=== PATIENT | male | born 1935 | race Caucasian/White ===

== ENCOUNTER 2017-09-06 17:19 | Emergency (ER) | payer MEDICARE, MEDICAID, OTHER ==
[~2017-09-06] VITALS: Ht 177.8 cm; Wt 88.6 kg
[~2017-09-06 17:19] MED LIST: ALLO100T PO; AMLO5TAB PO; ASPI-1265 PO; CLON0.2T PO; FLO0.4C PO; GLIP5TAB13 PO; LISI40TA4 PO; METO25TA6 PO
[2017-09-06 18:45] LABS: BASOPHILS % (AUTO) 0.2 % (0-1); EOSINOPHILS # (AUTO) 0.2 X10'3 (0-0.9); EOSINOPHILS % (AUTO) 2.3 % (0-6); HEMATOCRIT 37.5 % (42.0-52.0); LYMPHOCYTES # (AUTO) 2.2 X10'3 (1.1-4.8); LYMPHOCYTES % (AUTO) 27.7 % (21-51); MEAN CORPUSCULAR HEMOGLOBIN 29.8 PG (27.0-31.0); MEAN CORPUSCULAR HGB CONC 34.5 % (33.0-36.5); MEAN CORPUSCULAR VOLUME 86.3 FL (78-98); MEAN PLATELET VOLUME 7.8 FL (7.4-10.4); MONOCYTES # (AUTO) 0.4 X10'3 (0-0.9); MONOCYTES % (AUTO) 5.4 % (2-12); NEUTROPHILS % (AUTO) 64.4 % (42-75); PLATELET COUNT 132 X10'3 (140-440); RED BLOOD COUNT 4.35 X10'6 (4.70-6.10); RED CELL DISTRIBUTION WIDTH 13.5 % (11.5-14.5); WHITE BLOOD COUNT 7.8 X10'3 (4.5-11.0)
[2017-09-06 18:56] LABS: PROTHROMBIN TIME 10.1 SECONDS (9.0-12.0)
[2017-09-06 19:00] LABS: ALANINE AMINOTRANSFERASE 32 U/L (12-78); ALBUMIN 3.5 G/DL (3.4-5.0); ALBUMIN/GLOBULIN RATIO 0.8 (1.1-1.5); ALKALINE PHOSPHATASE 80 IU/L (46-116); ANION GAP 12 (8-16); ASPARTATE AMINO TRANSFERASE 14 U/L (10-37); BILIRUBIN,TOTAL 0.6 MG/DL (0.1-1.0); BLOOD UREA NITROGEN 58 MG/DL (7-18); BUN/CREATININE RATIO 29.4 (5.4-32.0); CALCIUM 9.9 MG/DL (8.5-10.1); CHLORIDE 104 MMOL/L (99-107); CREATININE 1.97 MG/DL (0.60-1.10); GLUCOSE 129 MG/DL (70-104); SODIUM 137 MMOL/L (135-145); TOTAL CARBON DIOXIDE 21.3 MMOL/L (24-32); TOTAL PROTEIN 7.9 G/DL (6.4-8.2); eGFR 33 ML/MIN
[2017-09-06 19:45] VITALS: BP 110/63
[2017-09-06] MEDS ORDERED: HYDROcodone/acetaminophen 5mg/325mg tablet PO ONE (20:05)
[2017-09-06] MEDS ORDERED: ciprofloxacin 250mg tablet PO ONE (20:05)
[2017-09-06] MEDS ORDERED: metroNIDAZOLE 500mg tablet PO ONE (20:05)
[2017-09-06] MEDS ORDERED: CIPR-230 PO (20:06)
[2017-09-06] MEDS ORDERED: METR500T4 PO (20:06)
[2017-09-06] MEDS ORDERED: HYDR-3965 PO (20:06)
== END 2017-09-06 20:30 | disposition home or self-care (01) ==
LOC: ER 17:19
DX: K57.92 Diverticulitis of intestine, part unspecified, without perforation or abscess without bleeding (principal); I49.9 Cardiac arrhythmia, unspecified; I10 Essential (primary) hypertension; E11.9 Type 2 diabetes mellitus without complications; Z90.49 Acquired absence of other specified parts of digestive tract; Z95.0 Presence of cardiac pacemaker; Z79.82 Long term (current) use of aspirin; Z79.899 Other long term (current) drug therapy
CPT/HCPCS: 36415; 74176; 80053; 85025; 85610; 99285; J3490

== ENCOUNTER 2017-09-27 17:33 | Emergency (ER) | payer MEDICARE, MEDICAID, OTHER ==
[~2017-09-27] VITALS: Ht 177.8 cm; Wt 81.8 kg
[~2017-09-27 17:33] MED LIST changes: +CIPR-230 PO; +HYDR-3965 PO
[2017-09-27] MEDS ORDERED: normal saline 1000ML IV soln IVB ONE (17:50)
[2017-09-27 18:16] LABS: BASOPHILS % (AUTO) 0.3 % (0-1); EOSINOPHILS # (AUTO) 0.1 X10'3 (0-0.9); EOSINOPHILS % (AUTO) 2.6 % (0-6); HEMATOCRIT 35.2 % (42.0-52.0); HEMOGLOBIN 12.1 g/dl (14.0-17.9); LYMPHOCYTES # (AUTO) 1.5 X10'3 (1.1-4.8); LYMPHOCYTES % (AUTO) 32.6 % (21-51); MEAN CORPUSCULAR HEMOGLOBIN 29.1 PG (27.0-31.0); MEAN CORPUSCULAR HGB CONC 34.3 % (33.0-36.5); MEAN CORPUSCULAR VOLUME 84.9 FL (78-98); MEAN PLATELET VOLUME 7.8 FL (7.4-10.4); MONOCYTES # (AUTO) 0.3 X10'3 (0-0.9); MONOCYTES % (AUTO) 5.8 % (2-12); NEUTROPHILS # (AUTO) 2.7 X10'3 (1.8-7.7); NEUTROPHILS % (AUTO) 58.7 % (42-75); PLATELET COUNT 142 X10'3 (140-440); RED BLOOD COUNT 4.15 X10'6 (4.70-6.10); RED CELL DISTRIBUTION WIDTH 13.8 % (11.5-14.5); WHITE BLOOD COUNT 4.7 X10'3 (4.5-11.0)
[2017-09-27 18:34] LABS: ALANINE AMINOTRANSFERASE 28 U/L (12-78); ALBUMIN 3.4 G/DL (3.4-5.0); ALBUMIN/GLOBULIN RATIO 0.9 (1.1-1.5); ALKALINE PHOSPHATASE 65 IU/L (46-116); ANION GAP 9 (8-16); ASPARTATE AMINO TRANSFERASE 14 U/L (10-37); BILIRUBIN,TOTAL 0.3 MG/DL (0.1-1.0); BLOOD UREA NITROGEN 49 MG/DL (7-18); BUN/CREATININE RATIO 28.8 (5.4-32.0); CALCIUM 9.4 MG/DL (8.5-10.1); CHLORIDE 104 MMOL/L (99-107); GLUCOSE 113 MG/DL (70-104); LIPASE 403 U/L (73-393); POTASSIUM 4.9 MMOL/L (3.5-5.1); SODIUM 133 MMOL/L (135-145); TOTAL CARBON DIOXIDE 19.6 MMOL/L (24-32); TOTAL PROTEIN 7.3 G/DL (6.4-8.2); eGFR 39 ML/MIN
[2017-09-27 18:48] LABS: CLARITY,URINE CLEAR (Clear); COLOR,URINE YELLOW (Yellow); GLUCOSE, URINE NEGATIVE (Neg); KETONES,URINE NEGATIVE (Neg); LEUKOCYTE ESTERASE ,URINE NEGATIVE (Neg); NITRITES, URINE NEGATIVE (Neg); OCCULT BLOOD,URINE TRACE-INTACT (Neg); PH,URINE 5.5 (4.8-8.0); PROTEIN,URINE TRACE mg/dl (Neg); UROBILINOGEN,URINE 0.2 E.U/dL (0.2-1.0)
[2017-09-27 18:53] LABS: UA COLLECTION TYPE CLN CATCH MIDSTREAM
[2017-09-27 18:54] LABS: BACTERIA,URINE NONE SEEN /HPF (Neg); RBC,URINE 0-2 /HPF (0-2); SQUAMOUS EPITHELIAL CELL,UR FEW /LPF (FEW); WBC,URINE NONE SEEN /HPF (0-4)
[2017-09-27 19:24] VITALS: BP 125/63
== END 2017-09-27 19:35 | disposition home or self-care (01) ==
LOC: ER 17:33
DX: E86.0 Dehydration (principal); R10.32 Left lower quadrant pain; K59.00 Constipation, unspecified; I49.9 Cardiac arrhythmia, unspecified; I10 Essential (primary) hypertension; E11.9 Type 2 diabetes mellitus without complications; Z90.49 Acquired absence of other specified parts of digestive tract; Z95.0 Presence of cardiac pacemaker; Z79.82 Long term (current) use of aspirin; Z79.899 Other long term (current) drug therapy
CPT/HCPCS: 36415; 80053; 81001; 83690; 85025; 96360; 99284; J7030

== ENCOUNTER 2018-03-25 01:19 | Inpatient (IN) | payer MEDICARE, OTHER ==
[~2018-03-25] VITALS: Ht 177.8 cm; Wt 88.0 kg
[~2018-03-25 01:19] MED LIST changes: -CIPR-230 PO; -HYDR-3965 PO
[2018-03-25] MEDS ORDERED: aspirin 81mg tab.chew PO ONE (02:00)
[2018-03-25 02:19] LABS: BASOPHILS % (AUTO) 0.3 % (0-1); EOSINOPHILS # (AUTO) 0.2 X10'3 (0-0.9); EOSINOPHILS % (AUTO) 3.5 % (0-6); HEMATOCRIT 41.5 % (42.0-52.0); HEMOGLOBIN 13.7 g/dl (14.0-17.9); LYMPHOCYTES # (AUTO) 1.4 X10'3 (1.1-4.8); LYMPHOCYTES % (AUTO) 30.3 % (21-51); MEAN CORPUSCULAR HEMOGLOBIN 28.6 PG (27.0-31.0); MEAN CORPUSCULAR HGB CONC 32.9 % (33.0-36.5); MEAN CORPUSCULAR VOLUME 86.9 FL (78-98); MEAN PLATELET VOLUME 7.8 FL (7.4-10.4); MONOCYTES # (AUTO) 0.2 X10'3 (0-0.9); MONOCYTES % (AUTO) 3.7 % (2-12); NEUTROPHILS # (AUTO) 2.7 X10'3 (1.8-7.7); NEUTROPHILS % (AUTO) 62.2 % (42-75); PLATELET COUNT 144 X10'3 (140-440); RED BLOOD COUNT 4.78 X10'6 (4.70-6.10); RED CELL DISTRIBUTION WIDTH 13.9 % (11.5-14.5); WHITE BLOOD COUNT 4.5 X10'3 (4.5-11.0)
[2018-03-25 02:29] LABS: D-DIMER 2.16 MG/L FEU (0-0.50); PARTIAL THROMBOPLASTIN TIME 28 SECONDS (22-32); PROTHROMBIN TIME 9.8 SECONDS (9.0-12.0)
[2018-03-25 02:31] LABS: ALANINE AMINOTRANSFERASE 26 U/L (12-78); ALBUMIN 3.3 G/DL (3.4-5.0); ALBUMIN/GLOBULIN RATIO 0.8 (1.1-1.5); ALKALINE PHOSPHATASE 91 IU/L (46-116); ANION GAP 14 (8-16); ASPARTATE AMINO TRANSFERASE 14 U/L (10-37); BILIRUBIN,TOTAL 0.3 MG/DL (0.1-1.0); BLOOD UREA NITROGEN 35 MG/DL (7-18); CALCIUM 9.4 MG/DL (8.5-10.1); CHLORIDE 100 MMOL/L (99-107); CREATININE 1.59 MG/DL (0.60-1.10); GLUCOSE 296 MG/DL (70-104); POTASSIUM 4.4 MMOL/L (3.5-5.1); SODIUM 137 MMOL/L (135-145); TOTAL CARBON DIOXIDE 22.9 MMOL/L (24-32); TOTAL PROTEIN 7.2 G/DL (6.4-8.2); eGFR 42 ML/MIN
[2018-03-25 02:40] LABS: MAGNESIUM 1.8 MG/DL (1.5-2.4); TROPONIN I 0.05 NG/ML (0.0-0.05)
[2018-03-25] MEDS ORDERED: heparin 25,000 UNIT/250ml bag 250 ML IV SCH (02:59)
[2018-03-25] MEDS ORDERED: furosemide 10 MG/1 ML 10ml inj IV ONE (03:00)
[2018-03-25] MEDS ORDERED: heparin 10,000 units/1 ML INJ IV ONE ×2 (03:00→03:05)
[2018-03-25] MEDS ORDERED: METO25TA6 PO (03:21)
[2018-03-25] MEDS ORDERED: enoxaparin 80mg/0.8ml syringe SUBCUT ONE (03:40)
[2018-03-25] MEDS ORDERED: mag hydrox/Alum hydrox/simeth 30ml oral suspension PO PRN (03:50)
[2018-03-25] MEDS ORDERED: magnesium hydroxide 30ml (MOM) UD suspension PO PRN (03:50)
[2018-03-25] MEDS ORDERED: HYDROmorphone 1 mg/ml syringe IV PRN ×2 (03:50)
[2018-03-25] MEDS ORDERED: ondansetron/PF 4mg/2ml inj IV PRN (03:50)
[2018-03-25] MEDS ORDERED: acetaminophen 325mg tablet PO PRN (03:50)
[2018-03-25] MEDS ORDERED: enoxaparin 100mg/ml syringe SUBCUT ONE (04:10)
[2018-03-25] MEDS: enoxaparin 80mg/0.8ml syringe SUBCUT SCH (08:35)
[2018-03-25] MEDS: metoprolol tartrate 12.5mg (1/2 tablet) PO SCH ×2 (08:36→20:07)
[2018-03-25] MEDS: aspirin 81mg tab.chew PO SCH (08:36)
[2018-03-25] MEDS: tamsulosin 0.4mg capsule PO SCH (08:36)
[2018-03-25] MEDS: lisinopril 20mg tablet PO SCH (08:36)
[2018-03-25] MEDS: amLODIPine 5mg tablet PO SCH (08:36)
--- NOTE | 2018-03-25 10:31 | NUR ---
pt to [facility]
--- NOTE | 2018-03-25 18:46 | NUR ---
Patient resting comfortably in bed eating his dinner. Family member at bedside.
--- NOTE | 2018-03-25 18:54 | NUR ---
Received report from JAYLEN Teague. Awaiting patient arrival to the unit.
[2018-03-25 19:05] VITALS: BP 140/85
--- NOTE | 2018-03-25 19:05 | NUR ---
Patient arrived to the floor via hospital bed. Placed in room 348B. Patient is awake and alert on room air, in no apparent distress. Call light and items of frequent use within reach. Visitors at bedside. Will continue to monitor.
[2018-03-25 23:05] LABS: HEMOGLOBIN A1C 7.5 % (4.5-6.2)
[2018-03-25 23:30] VITALS: BP 151/80
[2018-03-26 05:43] LABS: ALANINE AMINOTRANSFERASE 23 U/L (12-78); ALBUMIN 2.9 G/DL (3.4-5.0); ALBUMIN/GLOBULIN RATIO 0.8 (1.1-1.5); ALKALINE PHOSPHATASE 62 IU/L (46-116); ANION GAP 11 (8-16); ASPARTATE AMINO TRANSFERASE 16 U/L (10-37); BILIRUBIN,TOTAL 0.4 MG/DL (0.1-1.0); BLOOD UREA NITROGEN 35 MG/DL (7-18); BUN/CREATININE RATIO 21.2 (5.4-32.0); CALCIUM 8.9 MG/DL (8.5-10.1); CHLORIDE 103 MMOL/L (99-107); CREATININE 1.65 MG/DL (0.60-1.10); GLUCOSE 146 MG/DL (70-104); POTASSIUM 4.1 MMOL/L (3.5-5.1); SODIUM 137 MMOL/L (135-145); TOTAL CARBON DIOXIDE 22.7 MMOL/L (24-32); TOTAL PROTEIN 6.4 G/DL (6.4-8.2); eGFR 40 ML/MIN
[2018-03-26 05:51] LABS: BASOPHILS % (AUTO) 0.4 % (0-1); EOSINOPHILS # (AUTO) 0.2 X10'3 (0-0.9); EOSINOPHILS % (AUTO) 3.6 % (0-6); HEMOGLOBIN 12.8 g/dl (14.0-17.9); LYMPHOCYTES # (AUTO) 1.7 X10'3 (1.1-4.8); MEAN CORPUSCULAR HEMOGLOBIN 28.9 PG (27.0-31.0); MEAN CORPUSCULAR HGB CONC 32.9 % (33.0-36.5); MEAN CORPUSCULAR VOLUME 87.6 FL (78-98); MEAN PLATELET VOLUME 8.4 FL (7.4-10.4); MONOCYTES # (AUTO) 0.2 X10'3 (0-0.9); MONOCYTES % (AUTO) 5.3 % (2-12); NEUTROPHILS # (AUTO) 2.3 X10'3 (1.8-7.7); NEUTROPHILS % (AUTO) 51.7 % (42-75); PLATELET COUNT 122 X10'3 (140-440); RED BLOOD COUNT 4.45 X10'6 (4.70-6.10); RED CELL DISTRIBUTION WIDTH 13.6 % (11.5-14.5); WHITE BLOOD COUNT 4.4 X10'3 (4.5-11.0)
--- NOTE | 2018-03-26 06:17 | NUR ---
Problems reprioritized. Patient report given, questions answered & plan of care reviewed with JAYLEN Borjas.
--- NOTE | 2018-03-26 06:17 | NUR ---
Patient in room [facility] 348. I have received report from JAYLEN Butt and had the opportunity to ask questions and assume patient care.
[2018-03-26 08:00] VITALS: BP 140/65
[2018-03-26] MEDS: lisinopril 20mg tablet PO SCH (08:53)
[2018-03-26] MEDS: tamsulosin 0.4mg capsule PO SCH (08:53)
[2018-03-26] MEDS: amLODIPine 5mg tablet PO SCH (08:54)
[2018-03-26] MEDS: aspirin 81mg tab.chew PO SCH (08:54)
[2018-03-26] MEDS: metoprolol tartrate 12.5mg (1/2 tablet) PO SCH ×2 (08:54→20:24)
[2018-03-26] MEDS: enoxaparin 80mg/0.8ml syringe SUBCUT SCH (08:55)
[2018-03-26] MEDS ORDERED: aminophylline 250mg/10ml inj. IV PRN (10:55)
[2018-03-26] MEDS ORDERED: regadenoson 0.4mg/5ml syringe IV ONE (10:55)
[2018-03-26] MEDS ORDERED: nitroGLYCERIN 0.4mg SUBLingual tab SL PRN (10:55)
[2018-03-26] MEDS ORDERED: metoprolol tartrate 1mg/ml inj IV PRN (10:55)
[2018-03-26 12:00] VITALS: BP 130/73
[2018-03-26] MEDS: acyclovir 200 MG capsule PO SCH ×4 (12:06→23:54)
--- NOTE | 2018-03-26 16:18 | NUR ---
DM consult: Pt with A1c 7.5 seen at bedside. Pt states MD at [facility] told him to d/c DM medication d/t A1c of 7.7 which is "the best it's going to get at his age" per [facility] MD per pt. Pt states he still checks his BG levels 2-3 times a week with resulting numbers 127-135 of which pt states he reports to his MD at the [facility] q month. Pt given written DM education with referral to outpatient DM class and RD contact information. Pt with no questions at this time. Will remain available. Addendum: 03/26/18 at [address] Amended: Links added.
--- NOTE | 2018-03-26 18:13 | NUR ---
Problems reprioritized. Patient report given, questions answered & plan of care reviewed with JAYLEN Hsu.
[2018-03-26 19:00] VITALS: BP 145/77
[2018-03-27] VITALS (14 sets, daily range): BP systolic 93–149; BP diastolic 52–80
[2018-03-27 06:15] LABS: BASOPHILS % (AUTO) 0.3 % (0-1); EOSINOPHILS # (AUTO) 0.2 X10'3 (0-0.9); EOSINOPHILS % (AUTO) 3.5 % (0-6); HEMATOCRIT 38.2 % (42.0-52.0); HEMOGLOBIN 12.7 g/dl (14.0-17.9); LYMPHOCYTES # (AUTO) 1.5 X10'3 (1.1-4.8); LYMPHOCYTES % (AUTO) 33.8 % (21-51); MEAN CORPUSCULAR HEMOGLOBIN 29.1 PG (27.0-31.0); MEAN CORPUSCULAR HGB CONC 33.3 % (33.0-36.5); MEAN CORPUSCULAR VOLUME 87.6 FL (78-98); MONOCYTES # (AUTO) 0.3 X10'3 (0-0.9); MONOCYTES % (AUTO) 5.9 % (2-12); NEUTROPHILS # (AUTO) 2.6 X10'3 (1.8-7.7); NEUTROPHILS % (AUTO) 56.5 % (42-75); PLATELET COUNT 138 X10'3 (140-440); RED BLOOD COUNT 4.36 X10'6 (4.70-6.10); RED CELL DISTRIBUTION WIDTH 13.6 % (11.5-14.5); WHITE BLOOD COUNT 4.6 X10'3 (4.5-11.0)
--- NOTE | 2018-03-27 06:44 | NUR ---
Patient in room [facility] 348. I have received report from JAYLEN Hsu and had the opportunity to ask questions and assume patient care.
[2018-03-27 06:50] LABS: ALANINE AMINOTRANSFERASE 21 U/L (12-78); ALBUMIN/GLOBULIN RATIO 0.9 (1.1-1.5); ALKALINE PHOSPHATASE 63 IU/L (46-116); ANION GAP 8 (8-16); ASPARTATE AMINO TRANSFERASE 16 U/L (10-37); BILIRUBIN,TOTAL 0.5 MG/DL (0.1-1.0); BLOOD UREA NITROGEN 40 MG/DL (7-18); BUN/CREATININE RATIO 22.9 (5.4-32.0); CHLORIDE 104 MMOL/L (99-107); CREATININE 1.75 MG/DL (0.60-1.10); GLUCOSE 153 MG/DL (70-104); POTASSIUM 4.5 MMOL/L (3.5-5.1); SODIUM 136 MMOL/L (135-145); TOTAL CARBON DIOXIDE 23.7 MMOL/L (24-32); TOTAL PROTEIN 6.5 G/DL (6.4-8.2); eGFR 38 ML/MIN
[2018-03-27] MEDS ORDERED: polyethylene glycol 3350 17gm powd pack PO SCH (08:00)
[2018-03-27] MEDS: amLODIPine 5mg tablet PO SCH (08:13)
[2018-03-27] MEDS: lisinopril 20mg tablet PO SCH (08:13)
[2018-03-27] MEDS: metoprolol tartrate 12.5mg (1/2 tablet) PO SCH (08:13)
[2018-03-27] MEDS: tamsulosin 0.4mg capsule PO SCH (08:13)
[2018-03-27] MEDS: aspirin 81mg tab.chew PO SCH (08:14)
[2018-03-27] MEDS: enoxaparin 80mg/0.8ml syringe SUBCUT SCH (08:14)
[2018-03-27] MEDS: acyclovir 200 MG capsule PO SCH ×3 (08:19→15:48)
[2018-03-27] MEDS ORDERED: aminophylline inj. 10 ML IV ONE (11:43)
[2018-03-27] MEDS ORDERED: regadenoson 0.4mg/5ml syringe IV ONE (11:43)
--- NOTE | 2018-03-27 12:47 | NUR ---
pt back from tracey scan
[2018-03-27] MEDS ORDERED: ACYC-202 PO (17:29)
--- NOTE | 2018-03-27 18:15 | NUR ---
Pt discharged to home with all belongings in private vehicle accompanied by son. Discharge instructions reviewed, medications reviewed, prescriptions reviewed and provided to pt with [facility]. Diabetic survival skills provided, as well as A1C. IV DC'd, cannula intact. Pt escorted to front lobby via wheelchair by PCT.
== END 2018-03-27 17:50 | disposition home or self-care (01) | DRG 596 ==
LOC: ER 01:20 → ED HOLD 03:50 → EDBEDREQ 18:39 → SUR 3N 19:05
PROVIDERS: ADMIT Internal Medicine; ATTEND Family Medicine
PROC: CB121ZZ Planar Nuclear Medicine Imaging of Lungs and Bronchi using Technetium 99m (Tc-99m) (ICD-10-PCS; principal; 2018-03-25)
PROC: 4A02XM4 Measurement of Cardiac Total Activity, External Approach (ICD-10-PCS; 2018-03-27)
PROC: 3E033HZ Introduction of Radioactive Substance into Peripheral Vein, Percutaneous Approach (ICD-10-PCS; 2018-03-27)
DX: B02.9 Zoster without complications (principal); R07.89 Other chest pain; N18.9 Chronic kidney disease, unspecified; E11.22 Type 2 diabetes mellitus with diabetic chronic kidney disease; I12.9 Hypertensive chronic kidney disease with stage 1 through stage 4 chronic kidney disease, or unspecified chronic kidney disease; R79.1 Abnormal coagulation profile; M10.9 Gout, unspecified; Z95.0 Presence of cardiac pacemaker; Z90.49 Acquired absence of other specified parts of digestive tract; Z79.899 Other long term (current) drug therapy; Z79.82 Long term (current) use of aspirin; Z87.891 Personal history of nicotine dependence
CPT/HCPCS: 36415; 71045; 78452; 78582; 80053; 82948; 83036; 83735; 83880; 84484; 85025; 85379; 85610; 85730; 87070; 93005; 93017; 96372; 96374; 99285; A9500; A9539; A9540; G0378; J0280; J1170; J1644; J1650; J1940

== ENCOUNTER 2018-10-05 10:33 | Emergency (ER) | payer MEDICARE, OTHER ==
[~2018-10-05] VITALS: Ht 177.8 cm; Wt 90.0 kg
[~2018-10-05 10:33] MED LIST changes: -ALLO100T PO; -CLON0.2T PO; -GLIP5TAB13 PO
[2018-10-05] MEDS ORDERED: LIDOcaine 1% w/epiNEPHrine 1:200,000 30ml vial IM ONE (11:05)
[2018-10-05] MEDS ORDERED: NAPR-56 PO (11:43)
[2018-10-05 12:03] VITALS: BP 147/92
== END 2018-10-05 12:06 | disposition home or self-care (01) ==
LOC: ER 10:33
DX: M70.21 Olecranon bursitis, right elbow (principal); L02.413 Cutaneous abscess of right upper limb; I10 Essential (primary) hypertension; E11.9 Type 2 diabetes mellitus without complications; M10.9 Gout, unspecified; R59.1 Generalized enlarged lymph nodes; R59.0 Localized enlarged lymph nodes; Z79.82 Long term (current) use of aspirin; Z90.49 Acquired absence of other specified parts of digestive tract; Z95.0 Presence of cardiac pacemaker; Z98.890 Other specified postprocedural states; Z79.899 Other long term (current) drug therapy; Y93.89 Activity, other specified
CPT/HCPCS: 10060; 87070; 99284

== ENCOUNTER 2019-07-29 18:48 | Observation (INO) | payer OTHER, MEDICARE ==
[~2019-07-29] VITALS: Ht 177.8 cm; Wt 88.6 kg
[~2019-07-29 18:48] MED LIST changes: -AMLO5TAB PO; -FLO0.4C PO
[2019-07-29 20:00] LABS: BASOPHILS % (AUTO) 0.4 % (0-1); EOSINOPHILS # (AUTO) 0.2 X10'3 (0-0.9); EOSINOPHILS % (AUTO) 3.5 % (0-6); HEMATOCRIT 43.4 % (42.0-52.0); HEMOGLOBIN 14.4 g/dl (14.0-17.9); LYMPHOCYTES % (AUTO) 34.9 % (21-51); MEAN CORPUSCULAR HEMOGLOBIN 28.7 PG (27.0-31.0); MEAN CORPUSCULAR HGB CONC 33.1 g/dL (33.0-36.5); MEAN CORPUSCULAR VOLUME 86.7 FL (78-98); MEAN PLATELET VOLUME 7.5 FL (7.4-10.4); MONOCYTES # (AUTO) 0.3 X10'3 (0-0.9); MONOCYTES % (AUTO) 5.2 % (2-12); NEUTROPHILS # (AUTO) 3.2 X10'3 (1.8-7.7); PLATELET COUNT 152 X10'3 (140-440); RED BLOOD COUNT 5.01 X10'6 (4.70-6.10); RED CELL DISTRIBUTION WIDTH 14.6 % (11.5-14.5); WHITE BLOOD COUNT 5.8 X10'3 (4.5-11.0)
[2019-07-29] MEDS ORDERED: amLODIPine 5mg tablet PO ONE (20:05)
[2019-07-29 20:15] LABS: ALANINE AMINOTRANSFERASE 17 U/L (12-78); ALBUMIN 3.4 G/DL (3.4-5.0); ALBUMIN/GLOBULIN RATIO 0.8 (1.1-1.5); ALKALINE PHOSPHATASE 99 IU/L (46-116); ANION GAP 10 (8-16); ASPARTATE AMINO TRANSFERASE 17 U/L (10-37); BILIRUBIN,TOTAL 0.3 MG/DL (0.1-1.0); BLOOD UREA NITROGEN 44 MG/DL (7-18); BUN/CREATININE RATIO 19.8 (5.4-32.0); CALCIUM 9.4 MG/DL (8.5-10.1); CHLORIDE 103 MMOL/L (99-107); CREATININE 2.22 MG/DL (0.60-1.10); GLUCOSE 128 MG/DL (70-104); POTASSIUM 4.7 MMOL/L (3.5-5.1); SODIUM 137 MMOL/L (135-145); TOTAL CARBON DIOXIDE 24.4 MMOL/L (24-32); TOTAL PROTEIN 7.7 G/DL (6.4-8.2); eGFR 28 ML/MIN
--- NOTE | 2019-07-29 20:38 | NUR ---
AMINA Fowler spoke with Kaylee (daughter) by phone and provided an update on plan of care. She can be reached at [phone]
[2019-07-29] MEDS ORDERED: aspirin 325mg tablet PO ONE (20:45)
[2019-07-29] MEDS ORDERED: AMLO2.5T2 PO (21:12)
[2019-07-29] MEDS ORDERED: DOCU-21 PO (21:12)
[2019-07-29] MEDS ORDERED: FLO0.4C PO (21:12)
[2019-07-29] MEDS ORDERED: ALLO100T PO (21:12)
[2019-07-29] MEDS ORDERED: HYDROcodone/acetaminophen 5mg/325mg tablet PO PRN (21:40)
[2019-07-29] MEDS ORDERED: mag hydrox/Alum hydrox/simeth 30ml oral suspension PO PRN (21:40)
[2019-07-29] MEDS ORDERED: acetaminophen 325mg tablet PO PRN ×2 (21:40)
[2019-07-29] MEDS ORDERED: morphine 2 MG/ML inj. syringe IV PRN ×2 (21:40)
[2019-07-29] MEDS ORDERED: magnesium hydroxide 30ml (MOM) UD suspension PO PRN (21:40)
[2019-07-29] MEDS ORDERED: ondansetron/PF 4mg/2ml inj IV PRN (21:40)
--- NOTE | 2019-07-29 21:51 | NUR ---
daughter has been contacted and is aware that pt is being admitted.
--- NOTE | 2019-07-29 22:20 | NUR ---
Received report from ED nurse
[2019-07-29 22:22] LABS: HEMOGLOBIN A1C 7.1 % (4.5-6.2)
[2019-07-29 22:29] LABS: CHOL/HDL RATIO 7.2 (0.00-4.99); CHOLESTEROL 267 MG/DL (0-200); HDL CHOLESTEROL 37 MG/DL (35-60); LDL CHOLESTEROL 167 MG/DL (50-100); TRIGLYCERIDES 218 MG/DL (20-135)
--- NOTE | 2019-07-29 22:30 | NUR ---
Patient arrived to unit. Transported on gurney by a RN. Patient ambulated from moss to his bed. He is ALOx4, admit process has been started.
[2019-07-30 00:33] VITALS: BP 139/88
[2019-07-30 04:01] VITALS: BP 158/79
[2019-07-30 06:05] LABS: BASOPHILS % (AUTO) 0.5 % (0-1); EOSINOPHILS # (AUTO) 0.2 X10'3 (0-0.9); EOSINOPHILS % (AUTO) 3.4 % (0-6); HEMATOCRIT 38.4 % (42.0-52.0); HEMOGLOBIN 12.9 g/dl (14.0-17.9); MEAN CORPUSCULAR HEMOGLOBIN 28.7 PG (27.0-31.0); MEAN CORPUSCULAR HGB CONC 33.5 g/dL (33.0-36.5); MEAN CORPUSCULAR VOLUME 85.7 FL (78-98); MEAN PLATELET VOLUME 7.9 FL (7.4-10.4); MONOCYTES # (AUTO) 0.3 X10'3 (0-0.9); MONOCYTES % (AUTO) 7.3 % (2-12); NEUTROPHILS % (AUTO) 44.8 % (42-75); PLATELET COUNT 139 X10'3 (140-440); RED BLOOD COUNT 4.48 X10'6 (4.70-6.10); RED CELL DISTRIBUTION WIDTH 14.5 % (11.5-14.5); WHITE BLOOD COUNT 4.5 X10'3 (4.5-11.0)
--- NOTE | 2019-07-30 06:25 | NUR ---
Problems reprioritized. Patient report given, questions answered & plan of care reviewed with JAYLEN Schroeder.
[2019-07-30 06:33] LABS: ALBUMIN 2.7 G/DL (3.4-5.0); ANION GAP 8 (8-16); BLOOD UREA NITROGEN 45 MG/DL (7-18); BUN/CREATININE RATIO 20.5 (5.4-32.0); CALCIUM 8.9 MG/DL (8.5-10.1); CHLORIDE 106 MMOL/L (99-107); CHOL/HDL RATIO 7.2 (0.00-4.99); CHOLESTEROL 224 MG/DL (0-200); CREATININE 2.19 MG/DL (0.60-1.10); GLUCOSE 131 MG/DL (70-104); HDL CHOLESTEROL 31 MG/DL (35-60); LDL CHOLESTEROL 135 MG/DL (50-100); POTASSIUM 4.2 MMOL/L (3.5-5.1); SODIUM 138 MMOL/L (135-145); TRIGLYCERIDES 370 MG/DL (20-135); eGFR 29 ML/MIN
--- NOTE | 2019-07-30 06:33 | NUR ---
Patient in room [facility] 358. I have received report from Faheem YORK and had the opportunity to ask questions and assume patient care.
[2019-07-30 08:00] VITALS: BP 153/73
[2019-07-30] MEDS ORDERED: allopurinol 100mg tablet PO SCH (08:00)
[2019-07-30] MEDS ORDERED: atorvastatin 20mg tablet PO SCH (08:00)
[2019-07-30] MEDS ORDERED: aspirin 81mg tablet.DR PO SCH (08:00)
[2019-07-30] MEDS ORDERED: amLODIPine 5mg tablet PO SCH (08:00)
[2019-07-30] MEDS ORDERED: aspirin 81mg tab.chew PO SCH (08:00)
[2019-07-30] MEDS ORDERED: clopidogrel 75mg tablet PO SCH (08:00)
[2019-07-30] MEDS ORDERED: docusate sod 100mg capsule PO SCH (08:00)
[2019-07-30] MEDS ORDERED: tamsulosin 0.4mg capsule PO SCH (08:00)
[2019-07-30] MEDS ORDERED: metoprolol tartrate 12.5mg (1/2 tablet) PO SCH (08:00)
[2019-07-30 12:00] VITALS: BP 137/69
[2019-07-30] MEDS ORDERED: ATOR40TA PO (13:43)
--- NOTE | 2019-07-30 15:04 | NUR ---
Patient stable for discharge home today. All discharge instructions given to patient. IV discontinued and cannula intact. Prescription faxed to [facility] [phone].
--- NOTE | 2019-07-30 15:16 | NUR ---
DM consult: Pt with T2DM, current A1c is 7.1%. Pt discharged prior to RD being available for bedside visit. Written DM education with RD contact information mailed to patient's home address found in EMR. Pt last seen for written and verbal DM education in March 2018 where patient's A1c was 7.5%. Will remain available. Addendum: 07/30/19 at [address] Amended: Links added.
[2019-07-31] MEDS ORDERED: atorvastatin 20mg tablet PO SCH (08:00)
== END 2019-07-30 15:01 | disposition home or self-care (01) ==
LOC: ER 18:49 → ED HOLD 21:40 → UNDOADMOB 21:40 → ED HOLD 21:53 → EDBEDREQ 22:01 → ED HOLD 22:23 → SUR 3N 22:23
PROVIDERS: ADMIT Internal Medicine; ATTEND Family Medicine
DX: R47.01 Aphasia (principal); G45.9 Transient cerebral ischemic attack, unspecified; I12.9 Hypertensive chronic kidney disease with stage 1 through stage 4 chronic kidney disease, or unspecified chronic kidney disease; E11.22 Type 2 diabetes mellitus with diabetic chronic kidney disease; N18.3 Chronic kidney disease, stage 3 (moderate); E78.5 Hyperlipidemia, unspecified; N40.0 Benign prostatic hyperplasia without lower urinary tract symptoms; I49.5 Sick sinus syndrome; M10.9 Gout, unspecified; Z87.891 Personal history of nicotine dependence; Z95.0 Presence of cardiac pacemaker; Z90.49 Acquired absence of other specified parts of digestive tract; Z79.82 Long term (current) use of aspirin; Z79.899 Other long term (current) drug therapy
CPT/HCPCS: 36415; 70450; 71045; 80048; 80053; 80061; 82948; 83036; 83880; 84484; 85025; 85651; 87081; 92508; 92616; 93005; 93306; 93880; 99285; G0378

== ENCOUNTER 2020-01-04 14:10 | Emergency (ER) | payer OTHER, MEDICARE ==
[~2020-01-04] VITALS: Ht 177.8 cm; Wt 92.0 kg
[~2020-01-04 14:10] MED LIST changes: +ALLO100T PO; +AMLO2.5T2 PO; +DOCU-21 PO; +FLO0.4C PO; -LISI40TA4 PO
[2020-01-04] MEDS ORDERED: aspirin 81mg tab.chew PO ONE (14:35)
[2020-01-04 14:47] LABS: BASOPHILS % (AUTO) 0.5 % (0-1); EOSINOPHILS # (AUTO) 0.2 X10'3 (0-0.9); EOSINOPHILS % (AUTO) 4.2 % (0-6); HEMATOCRIT 31.7 % (42.0-52.0); HEMOGLOBIN 10.6 g/dl (14.0-17.9); LYMPHOCYTES # (AUTO) 1.2 X10'3 (1.1-4.8); LYMPHOCYTES % (AUTO) 27.8 % (21-51); MEAN CORPUSCULAR HEMOGLOBIN 29.8 PG (27.0-31.0); MEAN CORPUSCULAR HGB CONC 33.6 g/dL (33.0-36.5); MEAN CORPUSCULAR VOLUME 88.8 FL (78-98); MEAN PLATELET VOLUME 7.5 FL (7.4-10.4); MONOCYTES # (AUTO) 0.3 X10'3 (0-0.9); MONOCYTES % (AUTO) 6.7 % (2-12); NEUTROPHILS # (AUTO) 2.6 X10'3 (1.8-7.7); NEUTROPHILS % (AUTO) 60.8 % (42-75); PLATELET COUNT 115 X10'3 (140-440); RED BLOOD COUNT 3.57 X10'6 (4.70-6.10); RED CELL DISTRIBUTION WIDTH 13.8 % (11.5-14.5); WHITE BLOOD COUNT 4.2 X10'3 (4.5-11.0)
[2020-01-04 15:03] LABS: ALANINE AMINOTRANSFERASE 21 U/L (12-78); ALBUMIN 2.9 G/DL (3.4-5.0); ALBUMIN/GLOBULIN RATIO 0.9 (1.1-1.5); ALKALINE PHOSPHATASE 83 IU/L (46-116); ANION GAP 5 (8-16); ASPARTATE AMINO TRANSFERASE 12 U/L (10-37); BILIRUBIN,TOTAL 0.2 MG/DL (0.1-1.0); BLOOD UREA NITROGEN 53 MG/DL (7-18); BUN/CREATININE RATIO 21.4 (5.4-32.0); CALCIUM 8.4 MG/DL (8.5-10.1); CHLORIDE 109 MMOL/L (99-107); CREATININE 2.48 MG/DL (0.60-1.10); GLUCOSE 161 MG/DL (70-104); POTASSIUM 4.2 MMOL/L (3.5-5.1); SODIUM 138 MMOL/L (135-145); TOTAL CARBON DIOXIDE 23.8 MMOL/L (24-32); TOTAL PROTEIN 6.2 G/DL (6.4-8.2); eGFR 25 ML/MIN
--- NOTE | 2020-01-04 15:05 | NUR ---
PACE MAKER INTERROGATION FINISHED.
[2020-01-04 15:09] LABS: MAGNESIUM 1.9 MG/DL (1.5-2.4)
--- NOTE | 2020-01-04 15:09 | NUR ---
called [phone] as per pacemaker interoggation machine,spoke to hanane as per her she will page and they will get back to us and fax the information ,phone number is provided and my name .
--- NOTE | 2020-01-04 15:25 | NUR ---
Patient resting comfortably, states he wishes to go home, denies pain.
[2020-01-04 16:11] VITALS: BP 153/86
== END 2020-01-04 16:21 | disposition home or self-care (01) ==
LOC: ER 14:10
DX: R42 Dizziness and giddiness (principal); R11.0 Nausea; R06.02 Shortness of breath; I10 Essential (primary) hypertension; E11.9 Type 2 diabetes mellitus without complications; M10.9 Gout, unspecified; Z90.49 Acquired absence of other specified parts of digestive tract; Z95.0 Presence of cardiac pacemaker; Z79.82 Long term (current) use of aspirin; Z79.899 Other long term (current) drug therapy
CPT/HCPCS: 36415; 71045; 80053; 83735; 83880; 84484; 85025; 93005; 99285

== ENCOUNTER 2020-04-02 02:02 | Emergency (ER) | payer OTHER, MEDICAID ==
[~2020-04-02] VITALS: Ht 177.8 cm; Wt 90.9 kg
[2020-04-02 03:12] LABS: BASOPHILS % (AUTO) 0.6 % (0-1); EOSINOPHILS # (AUTO) 0.1 X10'3 (0-0.9); EOSINOPHILS % (AUTO) 3.6 % (0-6); HEMATOCRIT 30.7 % (42.0-52.0); HEMOGLOBIN 10.1 g/dl (14.0-17.9); LYMPHOCYTES % (AUTO) 24.1 % (21-51); MEAN CORPUSCULAR HEMOGLOBIN 28.8 PG (27.0-31.0); MEAN CORPUSCULAR VOLUME 87.2 FL (78-98); MEAN PLATELET VOLUME 7.7 FL (7.4-10.4); MONOCYTES # (AUTO) 0.2 X10'3 (0-0.9); MONOCYTES % (AUTO) 5.7 % (2-12); NEUTROPHILS # (AUTO) 2.7 X10'3 (1.8-7.7); PLATELET COUNT 111 X10'3 (140-440); RED BLOOD COUNT 3.51 X10'6 (4.70-6.10); RED CELL DISTRIBUTION WIDTH 14.3 % (11.5-14.5)
[2020-04-02 03:19] LABS: ALANINE AMINOTRANSFERASE 10 U/L (12-78); ALBUMIN 2.7 G/DL (3.4-5.0); ALBUMIN/GLOBULIN RATIO 0.8 (1.1-1.5); ALKALINE PHOSPHATASE 87 IU/L (46-116); ANION GAP 9 (8-16); ASPARTATE AMINO TRANSFERASE 12 U/L (10-37); BILIRUBIN,TOTAL 0.2 MG/DL (0.1-1.0); BLOOD UREA NITROGEN 51 MG/DL (7-18); BUN/CREATININE RATIO 16.9 (5.4-32.0); CALCIUM 8.9 MG/DL (8.5-10.1); CHLORIDE 107 MMOL/L (99-107); CREATININE 3.02 MG/DL (0.60-1.10); GLUCOSE 163 MG/DL (70-104); POTASSIUM 4.6 MMOL/L (3.5-5.1); SODIUM 139 MMOL/L (135-145); TOTAL CARBON DIOXIDE 22.8 MMOL/L (24-32); TOTAL PROTEIN 6.2 G/DL (6.4-8.2); eGFR 20 ML/MIN
[2020-04-02 07:00] VITALS: BP 160/79
== END 2020-04-02 07:03 | disposition home or self-care (01) ==
LOC: ER 02:02
DX: R06.02 Shortness of breath (principal); I10 Essential (primary) hypertension; M10.9 Gout, unspecified; Z90.49 Acquired absence of other specified parts of digestive tract; Z95.0 Presence of cardiac pacemaker; Z79.82 Long term (current) use of aspirin; Z79.899 Other long term (current) drug therapy
CPT/HCPCS: 36415; 71045; 80053; 83880; 84484; 85025; 93005; 99285